=== PATIENT | female | born 1990 | race African-American/Black ===

== ENCOUNTER 2020-06-26 14:35 | Observation (INO) ==
[2020-06-26] MEDS ORDERED: LACTATED RINGERS 1,000 ML IV SCH ×2 (15:00→15:25)
[2020-06-26] MEDS: ONDANSETRON 4 MG/2 ML VIAL IV PRN ×2 (15:14→20:09)
[2020-06-26 15:48] LABS: Basophils # 0.1 10*3/uL (0.0-0.2); Basophils % 1.1 % (0.0-0.8); Eosinophils % 0.7 % (0.00-10.9); Hematocrit 35.4 VOL% (35.7-47.0); Hemoglobin 11.4 GM/DL (12.0-16.0); Immature Granulocytes % 0.2 %; Immature Granulocytes Absolute 0.01 #; Lymphocytes # 2.1 10*3/uL (1.4-4.0); Lymphocytes % 38.1 % (21.3-54.2); Mean Corpuscular HGB Conc 32.2 GM/DL (32-36); Mean Corpuscular Volume 70.1 FL (87-102); Mean Platelet Volume 9.4 FL (9.6-12.0); Monocytes % 8.9 % (1.7-12.7); Platelet Count 357 T/CUMM (130-400); Red Blood Count 5.05 MC/CUMM (3.8-5.5); Red Cell Distribution Width 14.6 % (9.3-17.3); White Blood Count 5.5 T/CUMM (4-12)
[2020-06-26] MEDS ORDERED: SCOPOLAMINE 1.5 MG PATCH TRANSDERM SCH (16:00)
[2020-06-26 16:09] LABS: Albumin 3.8 G/DL (3.4-5.0); Bilirubin,Total 0.8 MG/DL (0.2-1.0); Calcium 8.8 MG/DL (8.5-10.1); Osmolality,Calculated 265.1 MOS/KG (273-304); Potassium 3.1 MMOL/L (3.5-5.1); Total Protein 7.3 G/DL (6.4-8.2)
[2020-06-26] MEDS: PANTOPRAZOLE 40 MG VIAL IV SCH ×2 (16:17→22:40)
[2020-06-26] MEDS ORDERED: LEVOFLOXACIN INJ 500 MG in PREMIX 1 EACH IV SCH (18:00)
[2020-06-26] MEDS: METOCLOPRAMIDE 10 MG/2 ML VIAL IV SCH (18:01)
[2020-06-26] MEDS: POTASSIUM CHLORIDE RIDER 10 MEQ in PREMIX 1 EACH IV PRN ×3 (18:05→23:58)
[2020-06-26] MEDS: LACTATED RINGERS 1,000 ML IV SCH (18:07)
[2020-06-26 18:28] LABS: Bacteria,Urine Few /HPF (Few); Bilirubin,Urine Negative (Negative); Blood, Urine Moderate mg/dL (Negative); Glucose,Urine (UA) Negative (Negative); Ketones,Urine 20 mg/dL (Negative); Mucus,Urine Many /LPF (Occasional); Nitrite,Urine Negative (Negative); Protein,Urine Negative; RBC,Urine 17 /HPF (0-4); Squamous Epithelial Cell,Urine Occasional /HPF (0-10); Urine Appearance Slightly Hazy (Clear); Urine Color Amber (Yellow); Urine Urobilinogen < 2.0 EU/DL (0.2-1.0); WBC,Urine 3 /HPF (0-6)
[2020-06-26] MEDS: diphenhydrAMINE 50 MG/1 ML VIAL IV PRN (20:13)
[2020-06-27] MEDS: ONDANSETRON 4 MG/2 ML VIAL IV PRN ×2 (00:07→04:23)
[2020-06-27] MEDS: METOCLOPRAMIDE 10 MG/2 ML VIAL IV SCH ×3 (00:12→11:48)
[2020-06-27] MEDS: LACTATED RINGERS 1,000 ML IV SCH ×2 (00:55→08:05)
[2020-06-27] MEDS: POTASSIUM CHLORIDE RIDER 10 MEQ in PREMIX 1 EACH IV PRN (01:01)
[2020-06-27] MEDS: diphenhydrAMINE 50 MG/1 ML VIAL IV PRN (04:27)
[2020-06-27] MEDS: PANTOPRAZOLE 40 MG VIAL IV SCH (08:46)
[2020-06-27 11:57] VITALS: BP 106/58
[2020-06-28] MEDS ORDERED: SCOPOLAMINE 1.5 MG PATCH TRANSDERM SCH (15:09)
== END 2020-06-27 12:45 | disposition home or self-care (01) ==
LOC: N.OB
PROVIDERS: ADMIT Obstetrics & Gynecology; ATTEND Obstetrics & Gynecology

== ENCOUNTER 2020-06-30 14:47 | Observation (INO) ==
[2020-06-30] MEDS ORDERED: ONDANSETRON 4 MG/2 ML VIAL ONE (15:34)
[2020-06-30 15:39] LABS: Bilirubin,Urine Negative (Negative); Blood, Urine Moderate mg/dL (Negative); Glucose,Urine (UA) Negative (Negative); Ketones,Urine 5 mg/dL (Negative); Mucus,Urine Many /LPF (Occasional); Nitrite,Urine Negative (Negative); Protein,Urine Negative; RBC,Urine 28 /HPF (0-4); Squamous Epithelial Cell,Urine Few /HPF (0-10); Urine Appearance Slightly Hazy (Clear); Urine Color Yellow (Yellow); Urine Specific Gravity 1.026 (1.001-1.035); Urine Urobilinogen < 2.0 EU/DL (0.2-1.0); WBC,Urine 1 /HPF (0-6)
[2020-06-30 15:59] LABS: Basophils % 0.6 % (0.0-0.8); Eosinophils % 0.3 % (0.00-10.9); Hematocrit 35.3 VOL% (35.7-47.0); Hemoglobin 11.4 GM/DL (12.0-16.0); Immature Granulocytes % 0.3 %; Immature Granulocytes Absolute 0.02 #; Lymphocytes # 2.4 10*3/uL (1.4-4.0); Lymphocytes % 36.3 % (21.3-54.2); Mean Corpuscular HGB Conc 32.3 GM/DL (32-36); Mean Corpuscular Volume 69.2 FL (87-102); Mean Platelet Volume 9.1 FL (9.6-12.0); Monocytes % 9.4 % (1.7-12.7); Neutrophils % 53.1 % (38.7-73.9); Platelet Count 346 T/CUMM (130-400); Red Cell Distribution Width 14.6 % (9.3-17.3); White Blood Count 6.5 T/CUMM (4-12)
[2020-06-30] MEDS ORDERED: ONDANSETRON 4 MG/2 ML VIAL IV STA (16:00)
[2020-06-30] MEDS ORDERED: SODIUM CHLORIDE 0.9% 1,000 ML IV STA (16:20)
[2020-06-30 16:39] LABS: Calcium 8.7 MG/DL (8.5-10.1); Potassium 3.4 MMOL/L (3.5-5.1)
[2020-06-30] MEDS ORDERED: MAGNESIUM HYDROXIDE SUSP 30 ML UDCUP PO PRN (18:24)
[2020-06-30] MEDS ORDERED: ACETAMINOPHEN 325 MG TABLET PO PRN (18:24)
[2020-06-30] MEDS ORDERED: BISACODYL 10 MG SUPP RECTAL PRN (18:24)
[2020-06-30] MEDS: LACTATED RINGERS 1,000 ML IV SCH (19:10)
[2020-06-30] MEDS ORDERED: diphenhydrAMINE CAP 25 MG CAPSULE PO PRN (20:52)
[2020-06-30] MEDS: DOCUSATE SODIUM 100 MG CAPSULE PO SCH (21:12)
[2020-06-30] MEDS: ONDANSETRON 4 MG/2 ML VIAL IV PRN (21:51)
[2020-07-01] MEDS: METOCLOPRAMIDE 10 MG/2 ML VIAL IV PRN ×2 (00:28→08:18)
[2020-07-01] MEDS: LACTATED RINGERS 1,000 ML IV SCH ×2 (00:38→08:39)
[2020-07-01] MEDS: ONDANSETRON 4 MG/2 ML VIAL IV PRN ×3 (04:15→16:02)
[2020-07-01 05:38] LABS: Calcium 8.3 MG/DL (8.5-10.1); Osmolality,Calculated 263.2 MOS/KG (273-304); Potassium 3.4 MMOL/L (3.5-5.1)
[2020-07-01] MEDS ORDERED: POTASSIUM CHLORIDE RIDER 10 MEQ in PREMIX 1 EACH IV PRN (05:44)
[2020-07-01] MEDS: POTASSIUM CHLORIDE RIDER 10 MEQ in PREMIX 1 EACH IV PRN ×3 (06:00→08:29)
[2020-07-01] MEDS: DOCUSATE SODIUM 100 MG CAPSULE PO SCH (08:19)
[2020-07-01] MEDS ORDERED: HEPARIN/NACL 0.9% 2 UNITS/ML 0 ML IV ONE (15:24)
[2020-07-01 15:30] VITALS: BP 106/65
[2020-07-02] MEDS ORDERED: SCOPOLAMINE 1.5 MG PATCH TRANSDERM SCH (09:00)
== END 2020-07-01 16:50 | disposition home or self-care (01) ==
LOC: EDBD → EDUNIT# → N.ED 14:47 → N.EDINP 14:47 → N.OB 18:10
PROVIDERS: ADMIT Obstetrics & Gynecology; ATTEND Obstetrics & Gynecology